=== PATIENT | male | born 1940 | race Caucasian/White ===

== ENCOUNTER → 2018-03-31 14:04 | Outpatient (CLI) | payer OTHER, SELFPAY ==
[2018-03-31 15:55] LABS: Prostate Specific Antigen 0.251 ng/mL (0.10-4.00)
== END ==
PROVIDERS: Family Provider Family Medicine; PCP Family Medicine; Visit Provider Urology
DX: C61 Malignant neoplasm of prostate (principal)
CPT/HCPCS: 36415; 84153

== ENCOUNTER → 2018-10-25 11:36 | Outpatient (CLI) | payer OTHER, SELFPAY ==
[2018-10-25 14:05] LABS: Prostate Specific Antigen 0.303 ng/mL (0.10-4.00)
== END ==
PROVIDERS: Family Provider Family Medicine; PCP Family Medicine; Visit Provider Radiology Radiation Oncology
DX: Z85.46 Personal history of malignant neoplasm of prostate (principal)
CPT/HCPCS: 36415; 84153

== ENCOUNTER → 2019-04-07 10:45 | Outpatient (CLI) | payer OTHER, SELFPAY ==
[2019-04-07 12:40] LABS: Prostate Specific Antigen 0.448 ng/mL (0.10-4.00)
== END ==
PROVIDERS: PCP Family Medicine; Visit Provider Urology
DX: C61 Malignant neoplasm of prostate (principal)
CPT/HCPCS: 36415; 84153

== ENCOUNTER → 2019-08-28 11:57 | Outpatient (CLI) | payer OTHER, SELFPAY ==
[2019-08-28 12:33] LABS: Add Manual Diff / Slide Review NO; Basophils Absolute Auto 0 /uL (0-100); Eosinophils Absolute Auto 200 /uL (0-450); Eosinophils Percent Auto 4.2 % (2-4); Hemoglobin 14.7 g/dL (13.5-17.5); Lymphocytes Absolute Auto 1600 /uL (1100-4500); Lymphocytes Percent Auto 33.4 % (25-40); Mean Corpuscular HGB Conc 34.2 % (30-36); Mean Corpuscular Hemoglobin 31.6 PG (26-34); Mean Corpuscular Volume 92.3 fL (80-100); Monocytes Absolute Auto 400 /uL (0-900); Monocytes Percent Auto 7.9 % (3-14); Neutrophils Absolute Auto 2500 /uL (1500-7000); Neutrophils Percent Auto 53.5 % (50-75); Platelet Count 190 X10^3/uL (150-400); Red Blood Cell Count 4.66 X10^6/uL (4.5-5.9); Red Cell Distribution Width 13.7 % (11.6-14.8); White Blood Cell Count 4.8 X10^3/uL (4.5-11.0)
[2019-08-28 13:36] LABS: Alanine Aminotransferase 23 IU/L (<50); Albumin 4.4 g/dL (3.5-5.0); Albumin Globulin Ratio 1.6 (1.0-2.8); Alkaline Phosphatase 58 U/L (38-126); Aspartate Aminotransferase 24 IU/L (17-59); BUN Creatinine Ratio 21.1 (6-22); Bilirubin Total 0.7 mg/dL (0.2-1.3); Blood Urea Nitrogen 19 mg/dL (9-20); Calcium 9.8 mg/dL (8.4-10.2); Carbon Dioxide 31 mmol/L (22-32); Chloride 102 mmol/L (98-107); Estimated Glomerular Filt Rate > 60.0 mL/min (>60); Globulin 2.8 g/dL (1.7-4.1); Glucose 120 mg/dL (80-110); HEMOLYSIS < 15 (0-50); Potassium 4.4 mmol/L (3.4-5.1); Sodium 141 mmol/L (137-145); Total Protein 7.2 g/dL (6.3-8.2)
[2019-08-28 14:06] LABS: Thyroid Stimulating Hormone 3.88 uIU/mL (0.47-4.68)
== END ==
PROVIDERS: PCP Family Medicine; Referring Provider Family Medicine; Visit Provider Family Medicine
DX: R41.3 Other amnesia (principal)
CPT/HCPCS: 36415; 80053; 84443; 85025

== ENCOUNTER → 2019-10-25 16:04 | Outpatient (CLI) | payer OTHER, SELFPAY ==
[2019-10-25 17:49] LABS: Prostate Specific Antigen 0.661 ng/mL (0.10-4.00)
== END ==
PROVIDERS: PCP Family Medicine; Referring Provider Radiology Radiation Oncology; Visit Provider Radiology Radiation Oncology
DX: C61 Malignant neoplasm of prostate (principal)
CPT/HCPCS: 36415; 84153

== ENCOUNTER 2020-05-04 14:11 | Observation (INO) | payer OTHER, SELFPAY ==
[2020-05-04] VITALS (27 sets, daily range): BP systolic 86–145; BP diastolic 59–111; PULSE 76–100; RESP 12–20; TEMP 36.1–38; O2SAT 92–100; BMI 25.0
--- NOTE | 2020-05-04 14:18 | ED.GENADULT ---
HPI - General Adult General Chief complaint: Fever Stated complaint: fever, dark urine Time Seen by Provider: 05/04/20 14:12 Source: EMS Mode of arrival: EMS Limitations: other (Dementia) History of Present Illness HPI narrative: Patient is an 80-year-old male. History of dementia. EMS were called by the patient's for evaluation of decreased urine, fevers, more sleepy and less responsive over the past several hours/day. was also concerned about dark colored urine in a potential urinary tract infection. EMS reports that in transitioning from different positions the patient did become very lightheaded and potentially had a presyncopal episode. Patient unable to provide any HPI. Related Data Home Medications Medication Instructions Recorded Confirmed donepezil 10 mg PO BID 05/04/20 05/04/20 quetiapine 25 mg PO BID 05/04/20 05/04/20 Allergies Allergy/AdvReac Type Severity Reaction Status Date / Time No Known Drug Allergies Allergy Verified 05/04/20 14:34 Review of Systems Review of Systems ROS Unobtainable: Unobtainable due to medical condition Patient History Medical History Change in mental status (Inactive) Influenza A (Inactive) Lewy body dementia (Inactive) Social History Smoking Status: Former smoker Exam Initial Vital Signs Initial Vital Signs: Vital Signs Temperature 100.4 F H 05/04/20 14:10 Pulse Rate 100 H 05/04/20 14:10 Respiratory Rate 20 05/04/20 14:10 Blood Pressure 111/60 05/04/20 14:10 Pulse Oximetry 100 05/04/20 14:10 Const General: comfortable and well developed Limitations: behavioral limitations HENMT Head: normal to inspection and normocephalic Resp Effort & Inspection: normal respiratory effort Auscultation: clear to auscultation bilaterally Cardio Rate: regular rate Rhythm: regular rhythm GI Inspection: non-distended Palpation: soft and No tender Skin Lesions: no lesions Rashes: no rashes Neuro General: patient alert and patient awake Cognition: abnormal cognition Speech: speech normal Extrem General: normal to inspection and capillary refill normal Psych Appearance: grossly normal and well kempt Scores GCS [place] coma scale eye opening: Spontaneous [place] coma scale verbal response: Confused Hermilo coma scale motor response: Obey commands [place] coma scale total score: 14 Course Orders Ordered: ED Orders 05/04/20 14:15 COVID19 -ED/INPAT/OR/L&D Stat 05/04/20 14:19 EKG-12 Lead Stat 05/04/20 14:20 Consult to [facility] [place] - Fitness Coach Stat Blood Culture Stat Complete Blood Count AUTO DIFF Stat Comprehensive Metabolic Panel Stat Lactate (Lactic Acid) Stat Lipase Stat Partial Thromboplastin Time Stat Procalcitonin Stat Prothrombin Time INR Stat Troponin & CK Cardiac Panel Stat 05/04/20 14:30 Urinalysis and Microscopic Stat 05/04/20 15:53 CT head/brain wo con Stat 05/04/20 15:54 XR chest 1V Stat Sodium Chloride (Normal Saline 0.9%) 1,000 mls @ 125 mls/hr IV CONT PRASANTH Last Admin: 05/04/20 16:11 Dose: 125 mls/hr Documented by: QUIRINO Discontinued Medications Sodium Chloride (Normal Saline 0.9%) 1,000 mls @ 1,000 mls/hr IV BOLUS ONE Stop: 05/04/20 15:17 Last Infusion: 05/04/20 16:07 Dose: 0 mls/hr Documented by: Admin: 05/04/20 14:38 Dose: 1,000 mls/hr Documented by: QUIRINO Vital Signs Vital signs: Vital Signs - 8 hr 05/04/20 14:10 05/04/20 14:31 05/04/20 14:33 Temperature 100.4 F H Pulse Rate 100 H 93 H 91 H Pulse Rate [Orthostatic Lying] Pulse Rate [Orthostatic Sitting] Respiratory Rate 20 18 18 Blood Pressure 111/60 86/59 L Blood Pressure [Orthostatic Lying] Blood Pressure [Orthostatic Sitting] Pulse Oximetry 100 93 97 05/04/20 14:41 05/04/20 14:45 05/04/20 15:00 Temperature Pulse Rate 91 H 91 H 88 Pulse Rate [Orthostatic Lying] Pulse Rate [Orthostatic Sitting] Respiratory Rate 17 18 13 Blood Pressure 95/67 96/68 92/62 Blood Pressure [Orthostatic Lying] Blood Pressure [Orthostatic Sitting] Pulse Oximetry 96 96 94 05/04/20 15:15 05/04/20 15:30 05/04/20 15:45 Temperature Pulse Rate 89 85 86 Pulse Rate [Orthostatic Lying] Pulse Rate [Orthostatic Sitting] Respiratory Rate 15 13 14 Blood Pressure 93/68 100/73 104/70 Blood Pressure [Orthostatic Lying] Blood Pressure [Orthostatic Sitting] Pulse Oximetry 98 99 99 05/04/20 16:00 05/04/20 17:18 05/04/20 17:20 Temperature 98.0 F Pulse Rate 86 Pulse Rate [Orthostatic Lying] 88 Pulse Rate [Orthostatic Sitting] 85 Respiratory Rate 14 Blood Pressure 99/68 Blood Pressure [Orthostatic Lying] 132/82 Blood Pressure [Orthostatic Sitting] 112/72 Pulse Oximetry 98 Medical Decision Making Medical Records Medical records reviewed: Yes I reviewed the patient's medical records. Lab Data Lab results reviewed: Yes I reviewed the patient's lab results. Result diagrams: 05/04/20 14:20 05/04/20 14:20 Labs: Lab Results 05/04/20 05/04/20 05/04/20 Range/Units 14:15 14:20 14:20 WBC 8.2 (4.5-11.0) X10^3/uL RBC 4.94 (4.5-5.9) X10^6/uL Hgb 15.4 (13.5-17.5) g/dL Hct 45.3 (41-53) % MCV 91.8 (80-100) fL MCH 31.1 (26-34) PG MCHC 33.9 (30-36) % RDW 13.7 (11.6-14.8) % Plt Count 200 (150-400) X10^3/uL Neut % (Auto) 45.5 L (50-75) % Lymph % (Auto) 44.5 H (25-40) % Levy % (Auto) 7.8 (3-14) % Eos % (Auto) 1.8 L (2-4) % Baso % (Auto) 0.4 (0-2) % Neut # (Auto) 3700 (5545-8710) /uL Lymph # (Auto) 3600 (4635-0684) /uL Levy # (Auto) 600 (0-900) /uL Eos # (Auto) 100 (0-450) /uL Baso # (Auto) 0 (0-100) /uL PT 12.3 (10.1-12.7) SECONDS INR 1.1 (0.9-1.3) APTT 30 (26.4-36.2) SECONDS Sodium (137-145) mmol/L Potassium (3.4-5.1) mmol/L Chloride (98-107) mmol/L Carbon Dioxide (22-32) mmol/L BUN (9-20) mg/dL Creatinine (0.66-1.25) mg/dL Estimated GFR (>60) mL/min BUN/Creatinine Ratio (6-22) Glucose (80-110) mg/dL Lactate (0.7-2.1) mmol/L Calcium (8.4-10.2) mg/dL Total Bilirubin (0.2-1.3) mg/dL AST (17-59) IU/L ALT (<50) IU/L Alkaline Phosphatase (38-126) U/L Total Creatine Kinase (55-170) U/L CK-MB (CK-2) (<2.37) ng/mL CK-MB (CK-2) Rel Index (1.5-5.0) % Troponin I (0.01-0.034) ng/mL Total Protein (6.3-8.2) g/dL Albumin (3.5-5.0) g/dL Globulin (1.7-4.1) g/dL Albumin/Globulin Ratio (1.0-2.8) Lipase (23-300) U/L Procalcitonin (<0.5) ng/mL Urine Color Urine Appearance Urine pH (4.5-8.0) Ur Specific [place] (1.000-1.035) Urine Protein (Negative) Urine Glucose (UA) (Negative) g/dL Urine Ketones (NEGATIVE) Urine Occult Blood (Negative) Urine Nitrate (Negative) Urine Bilirubin (NEGATIVE) Urine Urobilinogen (0.2) E.U./dL Ur Leukocyte Esterase (NEGATIVE) Urine RBC (0-5/HPF) Urine WBC (0-5/HPF) Ur Squamous Epith Cells (0-5/HPF) Urine Bacteria (None) Urine Mucus (Negative) Ur Culture Indicated? COVID-19 PCR Negative (Negative) 05/04/20 05/04/20 05/04/20 Range/Units 14:20 14:20 14:20 WBC (4.5-11.0) X10^3/uL RBC (4.5-5.9) X10^6/uL Hgb (13.5-17.5) g/dL Hct (41-53) % MCV (80-100) fL MCH (26-34) PG MCHC (30-36) % RDW (11.6-14.8) % Plt Count (150-400) X10^3/uL Neut % (Auto) (50-75) % Lymph % (Auto) (25-40) % Levy % (Auto) (3-14) % Eos % (Auto) (2-4) % Baso % (Auto) (0-2) % Neut # (Auto) (3312-2032) /uL Lymph # (Auto) (3572-5390) /uL Levy # (Auto) (0-900) /uL Eos # (Auto) (0-450) /uL Baso # (Auto) (0-100) /uL PT (10.1-12.7) SECONDS INR (0.9-1.3) APTT (26.4-36.2) SECONDS Sodium 136 L (137-145) mmol/L Potassium 4.3 (3.4-5.1) mmol/L Chloride 107 (98-107) mmol/L Carbon Dioxide 25 (22-32) mmol/L BUN 14 (9-20) mg/dL Creatinine 0.76 (0.66-1.25) mg/dL Estimated GFR > 60.0 (>60) mL/min BUN/Creatinine Ratio 18.4 (6-22) Glucose 148 H (80-110) mg/dL Lactate 1.5 (0.7-2.1) mmol/L Calcium 8.9 (8.4-10.2) mg/dL Total Bilirubin 1.0 (0.2-1.3) mg/dL AST 28 (17-59) IU/L ALT 23 (<50) IU/L Alkaline Phosphatase 55 (38-126) U/L Total Creatine Kinase 128 (55-170) U/L CK-MB (CK-2) 1.02 (<2.37) ng/mL CK-MB (CK-2) Rel Index 0.8 L (1.5-5.0) % Troponin I < 0.012 (0.01-0.034) ng/mL Total Protein 7.1 (6.3-8.2) g/dL Albumin 3.9 (3.5-5.0) g/dL Globulin 3.2 (1.7-4.1) g/dL Albumin/Globulin Ratio 1.2 (1.0-2.8) Lipase 113 (23-300) U/L Procalcitonin < 0.05 (<0.5) ng/mL Urine Color Urine Appearance Urine pH (4.5-8.0) Ur Specific [place] (1.000-1.035) Urine Protein (Negative) Urine Glucose (UA) (Negative) g/dL Urine Ketones (NEGATIVE) Urine Occult Blood (Negative) Urine Nitrate (Negative) Urine Bilirubin (NEGATIVE) Urine Urobilinogen (0.2) E.U./dL Ur Leukocyte Esterase (NEGATIVE) Urine RBC (0-5/HPF) Urine WBC (0-5/HPF) Ur Squamous Epith Cells (0-5/HPF) Urine Bacteria (None) Urine Mucus (Negative) Ur Culture Indicated? COVID-19 PCR (Negative) 05/04/20 Range/Units 14:30 WBC (4.5-11.0) X10^3/uL RBC (4.5-5.9) X10^6/uL Hgb (13.5-17.5) g/dL Hct (41-53) % MCV (80-100) fL MCH (26-34) PG MCHC (30-36) % RDW (11.6-14.8) % Plt Count (150-400) X10^3/uL Neut % (Auto) (50-75) % Lymph % (Auto) (25-40) % Levy % (Auto) (3-14) % Eos % (Auto) (2-4) % Baso % (Auto) (0-2) % Neut # (Auto) (2343-6594) /uL Lymph # (Auto) (1249-3318) /uL Levy # (Auto) (0-900) /uL Eos # (Auto) (0-450) /uL Baso # (Auto) (0-100) /uL PT (10.1-12.7) SECONDS INR (0.9-1.3) APTT (26.4-36.2) SECONDS Sodium (137-145) mmol/L Potassium (3.4-5.1) mmol/L Chloride (98-107) mmol/L Carbon Dioxide (22-32) mmol/L BUN (9-20) mg/dL Creatinine (0.66-1.25) mg/dL Estimated GFR (>60) mL/min BUN/Creatinine Ratio (6-22) Glucose (80-110) mg/dL Lactate (0.7-2.1) mmol/L Calcium (8.4-10.2) mg/dL Total Bilirubin (0.2-1.3) mg/dL AST (17-59) IU/L ALT (<50) IU/L Alkaline Phosphatase (38-126) U/L Total Creatine Kinase (55-170) U/L CK-MB (CK-2) (<2.37) ng/mL CK-MB (CK-2) Rel Index (1.5-5.0) % Troponin I (0.01-0.034) ng/mL Total Protein (6.3-8.2) g/dL Albumin (3.5-5.0) g/dL Globulin (1.7-4.1) g/dL Albumin/Globulin Ratio (1.0-2.8) Lipase (23-300) U/L Procalcitonin (<0.5) ng/mL Urine Color Yellow Urine Appearance Clear Urine pH 6.5 (4.5-8.0) Ur Specific [place] 1.020 (1.000-1.035) Urine Protein Negative (Negative) Urine Glucose (UA) Negative (Negative) g/dL Urine Ketones Negative (NEGATIVE) Urine Occult Blood Negative (Negative) Urine Nitrate Negative (Negative) Urine Bilirubin Negative (NEGATIVE) Urine Urobilinogen 0.2 (0.2) E.U./dL Ur Leukocyte Esterase Negative (NEGATIVE) Urine RBC None seen (0-5/HPF) Urine WBC 1-5/hpf (0-5/HPF) Ur Squamous Epith Cells 0-1 /hpf (0-5/HPF) Urine Bacteria None seen (None) Urine Mucus 1+ H (Negative) Ur Culture Indicated? Cult not indicated COVID-19 PCR (Negative) Imaging Data CT scan - head: Radiologist's Impression: [address] [id number] [address] Scan Report Signed Patient: Martell Gonzales CMR#: [id number] : 1940Acct:[id number] Age/Sex: 80 / MDate of Service: 05/04/20 Loc: ED Accession Number: [id number] Procedure: CT head/brain wo con Ordering Provider: Bayron Ayala D.O. PROCEDURE: CT HEAD/BRAIN WO CON INDICATIONS: AMS TECHNIQUE: Noncontrast 4.5 mm thick angled axial sections acquired from the foramen magnum to the vertex, with coronal and sagittal reformats. For radiation dose reduction, the following was used: automated exposure control, adjustment of mA and/or kV according to patient size. COMPARISON: [facility], CT, HEAD WITHOUT CONTRAST, 04/30/2017, 9:54. [facility], CT, HEAD WITHOUT CONTRAST, 06/24/2016, 15:50. FINDINGS: Image quality: Excellent. CSF spaces: Basal cisterns are patent. No extra-axial fluid collections. The ventricles are symmetric in size and shape. Brain: No intracranial bleeds or masses. There is moderate cerebral volume loss for age, with resultant ventricular and sulcal prominence. There are moderate periventricular and deep white matter chronic small vessel ischemic changes. There is intracranial internal carotid artery atherosclerosis. Skull and face: Calvarium and visualized facial bones appear intact, without suspicious lesions. Sinuses: Visualized sinuses and mastoids are clear. IMPRESSION: 1. CT head without acute intracranial abnormalities or acute calvarial fractures. 2. Age-related senescent changes and sequela of chronic small vessel ischemic disease. Dictated by: Fer Tillman M.D. on 05/04/2020 at 15:40 Approved by: Fer Tillman M.D. on 05/04/2020 at 15:43 Chest x-ray: Radiologist's Impression: [address] [id number] XRay Report Signed Patient: Martell Gonzales CMR#: [id number] : 1940Acct:[id number] Age/Sex: 80 / MDate of Service: 05/04/20 Loc: ED Accession Number: [id number] Procedure: XR chest 1V Ordering Provider: Bayron Ayala D.O. PROCEDURE: XR CHEST 1V INDICATIONS: eval for PNA TECHNIQUE: One view of the chest was acquired. COMPARISON: [facility], CR, CHEST 1 VIEW, 06/24/2016, 15:19. FINDINGS: Surgical changes and devices: None. Lungs and pleura: There is a somewhat curvilinear density projecting across the upper half of the chest bilaterally likely representing artifact or skin fold. Lungs are clear. No pleural effusions or pneumothorax. Mediastinum: Mediastinal contours appear normal. Heart size is normal. Bones and chest wall: No suspicious bony lesions. Overlying soft tissues appear unremarkable. Severe degenerative changes of the bilateral shoulders are again noted, more pronounced on the right. IMPRESSION: Curvilinear density projecting across the upper chest bilaterally with suggestion of extending outside of the chest. This is favored to represent artifact, possibly skin fold. Recommend repeating examination with upright and lateral view if patient is able. Otherwise, no acute cardiopulmonary abnormalities. Dictated by: Fer Tillman M.D. on 05/04/2020 at 15:43 Approved by: Fer Tillman M.D. on 05/04/2020 at 15:48 ECG Data Attestation: I personally reviewed and interpreted this ECG as follows: Prior ECG tracings: not available for review Interpretation: Sinus rhythm Ventricular rate of 97 Left axis deviation Nonspecific ST T wave changes MDM Narrative Medical decision making narrative: Patient's came to the emergency department and upon further evaluation it sounds like that starting 4 days ago patient had acute worsening of his dementia/altered mental status. He has spent past 4 days in bed. Cannot stand secondary to weakness and unsteadiness. Has fallen multiple times. After learning this information a head CT was ordered. He is not on anticoagulation. Was febrile upon arrival however no source of infection was found. Was not given any antibiotics. Patient unable to stand on his own. I discussed the case with Dr. Lockwood who was on-call for the patient's primary provider. Will admit for further evaluation treatment. Discussed the admission with the patient's . He expressed understanding and agreement. Discharge Plan Departure Patient Disposition: Admitted as Observation Clinical Impression: Fever of unknown origin Altered mental status Qualifiers: Altered mental status type: unspecified Qualified Code(s): R41.82 - Altered mental status, unspecified Admit Date/Time: 05/04/20 17:20 Admit Provider: Fernando Lockwood
[2020-05-04 14:32] LABS: Add Manual Diff / Slide Review NO; Basophils Absolute Auto 0 /uL (0-100); Basophils Percent Auto 0.4 % (0-2); Eosinophils Absolute Auto 100 /uL (0-450); Eosinophils Percent Auto 1.8 % (2-4); Hematocrit 45.3 % (41-53); Hemoglobin 15.4 g/dL (13.5-17.5); Lymphocytes Absolute Auto 3600 /uL (1100-4500); Lymphocytes Percent Auto 44.5 % (25-40); Mean Corpuscular HGB Conc 33.9 % (30-36); Mean Corpuscular Hemoglobin 31.1 PG (26-34); Mean Corpuscular Volume 91.8 fL (80-100); Monocytes Absolute Auto 600 /uL (0-900); Monocytes Percent Auto 7.8 % (3-14); Neutrophils Absolute Auto 3700 /uL (1500-7000); Neutrophils Percent Auto 45.5 % (50-75); Platelet Count 200 X10^3/uL (150-400); Red Blood Cell Count 4.94 X10^6/uL (4.5-5.9); Red Cell Distribution Width 13.7 % (11.6-14.8); White Blood Cell Count 8.2 X10^3/uL (4.5-11.0)
[2020-05-04 14:35] LABS: Bacteria Urine None Seen; RBC Urine None Seen (0-5/HPF)
[2020-05-04 14:37] LABS: INR 1.1 (0.9-1.3); Prothrombin Time 12.3 SECONDS (10.1-12.7)
[2020-05-04] MEDS: SODIUM CHLORIDE 0.9% 1,000 ML 1000 ML IV (14:38)
[2020-05-04 14:39] LABS: PTT Partial Thromboplastin Tim 30 SECONDS (26.4-36.2)
[2020-05-04 14:41] LABS: Alanine Aminotransferase 23 IU/L (<50); Albumin 3.9 g/dL (3.5-5.0); Albumin Globulin Ratio 1.2 (1.0-2.8); Alkaline Phosphatase 55 U/L (38-126); Aspartate Aminotransferase 28 IU/L (17-59); BUN Creatinine Ratio 18.4 (6-22); Blood Urea Nitrogen 14 mg/dL (9-20); Calcium 8.9 mg/dL (8.4-10.2); Carbon Dioxide 25 mmol/L (22-32); Chloride 107 mmol/L (98-107); Creatine Kinase 128 U/L (55-170); Estimated Glomerular Filt Rate > 60.0 mL/min (>60); Globulin 3.2 g/dL (1.7-4.1); Glucose 148 mg/dL (80-110); HEMOLYSIS 65 (0-50); Lactate (Lactic Acid) 1.5 mmol/L (0.7-2.1); Lipase 113 U/L (23-300); Potassium 4.3 mmol/L (3.4-5.1); Sodium 136 mmol/L (137-145); Total Protein 7.1 g/dL (6.3-8.2)
[2020-05-04 14:45] LABS: Appearance Urine UA CLEAR; Bilirubin Urine UA NEGATIVE (NEGATIVE); Color Urine UA YELLOW; Glucose Urine UA NEGATIVE (Negative); Ketones Urine UA NEGATIVE (NEGATIVE); Leukocyte Esterase Urine UA NEGATIVE (NEGATIVE); Nitrite Urine UA NEGATIVE (Negative); Occult Blood Urine UA NEGATIVE (Negative); Protein Urine UA NEGATIVE (Negative); Urobilinogen Urine UA 0.2 E.U./dL (0.2); pH Urine UA 6.5 (4.5-8.0)
[2020-05-04 14:52] LABS: Troponin I < 0.012 ng/mL (0.01-0.034)
[2020-05-04 14:54] LABS: Culture Indicated Urine Cult Not Indicated; Mucus Urine 1+ (Negative); Squamous Epithelial Cell Urine 0-1 /HPF (0-5/HPF); WBC Urine 1-5/HPF (0-5/HPF)
[2020-05-04 14:56] LABS: CKMB % Relative Index 0.8 % (1.5-5.0); Creatine Kinase MB 1.02 ng/mL (<2.37); Procalcitonin < 0.05 ng/mL (<0.5)
[2020-05-04 15:00] LABS: COVID19 -Nasal RAPID Negative (Negative)
--- NOTE | 2020-05-04 15:53 | DI.CT.S_ITS ---
PROCEDURE: CT HEAD/BRAIN WO CON INDICATIONS: AMS TECHNIQUE: Noncontrast 4.5 mm thick angled axial sections acquired from the foramen magnum to the vertex, with coronal and sagittal reformats. For radiation dose reduction, the following was used: automated exposure control, adjustment of mA and/or kV according to patient size. COMPARISON: [facility], CT, HEAD WITHOUT CONTRAST, 04/30/2017, 9:54. [facility], CT, HEAD WITHOUT CONTRAST, 06/24/2016, 15:50. FINDINGS: Image quality: Excellent. CSF spaces: Basal cisterns are patent. No extra-axial fluid collections. The ventricles are symmetric in size and shape. Brain: No intracranial bleeds or masses. There is moderate cerebral volume loss for age, with resultant ventricular and sulcal prominence. There are moderate periventricular and deep white matter chronic small vessel ischemic changes. There is intracranial internal carotid artery atherosclerosis. Skull and face: Calvarium and visualized facial bones appear intact, without suspicious lesions. Sinuses: Visualized sinuses and mastoids are clear. IMPRESSION: 1. CT head without acute intracranial abnormalities or acute calvarial fractures. 2. Age-related senescent changes and sequela of chronic small vessel ischemic disease. Dictated by: Fer Tillman M.D. on 05/04/2020 at 15:40 Approved by: Fer Tillman M.D. on 05/04/2020 at 15:43
--- NOTE | 2020-05-04 15:54 | DI.RAD.S_ITS ---
PROCEDURE: XR CHEST 1V INDICATIONS: eval for PNA TECHNIQUE: One view of the chest was acquired. COMPARISON: [facility], , CHEST 1 VIEW, 06/24/2016, 15:19. FINDINGS: Surgical changes and devices: None. Lungs and pleura: There is a somewhat curvilinear density projecting across the upper half of the chest bilaterally likely representing artifact or skin fold. Lungs are clear. No pleural effusions or pneumothorax. Mediastinum: Mediastinal contours appear normal. Heart size is normal. Bones and chest wall: No suspicious bony lesions. Overlying soft tissues appear unremarkable. Severe degenerative changes of the bilateral shoulders are again noted, more pronounced on the right. IMPRESSION: Curvilinear density projecting across the upper chest bilaterally with suggestion of extending outside of the chest. This is favored to represent artifact, possibly skin fold. Recommend repeating examination with upright and lateral view if patient is able. Otherwise, no acute cardiopulmonary abnormalities. Dictated by: Fer Tillman M.D. on 05/04/2020 at 15:43 Approved by: Fer Tillman M.D. on 05/04/2020 at 15:48
--- NOTE | 2020-05-04 15:57 | CM.SWNOTE ---
JACK PRIZER note JACK PRIZER consult requested for patient. Patient is a 80 y/o male who presents to ED via EMS with Sharron with concerns of decreased energy and dark urine. JACK PRIZER asked to consult to inquire about any potential care giving needs. JACK PRIZER enters room. Patient is asleep, and JACK PRIZER talks with Sharron. Sharron explains that patient has Lewy Body Dementia, that they have a cna caregiver that they have been working with for multiple years, and that Sharron has taken many steps to keep patient safe in home. Sharron says that she is on the wait list for [facility], but is wanting to keep patient in home as long as it remains feasible. Sharron explains that patient does not want to take medication, but she has been ensuring that he is taking his medication for the past two years. Sharron explains she has installed handles on rivera/showers, put railings on the stairs, and created a gate at the top of the stairs to prevent patient from walking down the stairs in the middle of the night. Sharron is also exploring options to put railings on the sides of patient's bed. Patient is engaged with PT and PCP. Sharron states that though she likes her cna caregiver and has family support, she is feeling as though she has not been able to have time to herself due to care giving needs. Sharron states she is open to exploring backup private caregivers and JACK PRIZER provides senior resource guide and explains process for working with some of the local agencies. JACK PRIZER updates Dr. Ayala, and patient discusses no other needs at this time. RADHA Andre
[2020-05-04] MEDS: SODIUM CHLORIDE 0.9% 1,000 ML 125 ML IV ×2 (16:11→20:56)
--- NOTE | 2020-05-04 17:19 | PC.NURSE ---
patient unable to follow directions. Laying and sitting orthostatics only taken. Patient provided a walker however unable to comprehend the task and would not hold onto the walker. Provider at bedside and aware.
--- NOTE | 2020-05-04 18:11 | PC.NURSE ---
Pt being fed apple sauce by while laying down. Educated regarding risk of aspiration increase when taking po laying down. Pt sat up to 75degrees as tolerated.
[2020-05-04 18:48] LABS: Strep Grp A by PCR Rapid Negative
--- NOTE | 2020-05-04 19:09 | PM.HP.1 ---
History of Present Illness History of Present Illness Date Patient Seen: 05/04/20 Time Patient Seen: 19:09 Chief complaint: fever, dark urine Narrative: 80-year-old male admitted by the [facility] Emergency Department with increased weakness and altered mental status. Patient's symptoms apparently began something like 3 or 4 days prior to admission. Spouse notes he spent much more time in his room and had increased weakness and multiple falls which is unusual for him. Spouse had noticed that his urine was dark and he was sort of somnolent and wondered about possible urinary tract infection. EMS was summoned and patient was brought to the hospital. During transport and prep for transport patient apparently reported some lightheadedness and dizziness and maybe even had a presyncopal episode. He had some intermittent hypotension during monitoring in the ER as well. Patient has longstanding history of Lewy body dementia followed by Neurology at [facility] in [place]. However his normal function level is apparently fairly independent ambulatory and able to converse. He certainly is nothing like that currently. After admission while in the hospital floor patient began to return to his normal status in fact having increasing agitation and trying to get up out of bed. 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) Prostate cancer (Inactive) Surgical History History of radical prostatectomy (Acute 11/27/13) History of total right hip arthroplasty (Acute 07/16/14) Family & Social History Social History: household members spouse Prior Living Arrangements House Safety & Behavioral: Feels Safe in Current Yes Environment Been Physically Hurt or No Threatened By a Person Suicidal Ideation Description None Suicide Plan Description No Plan Tobacco & Substance use: Smoking Status Never smoker alcohol intake never alcohol intake frequency 0-2 drinks per day Substance Use Type does not use Meds Home Medications and Allergies Home Medications Medication Instructions Recorded Confirmed Type brimonidine 1 drp OPHTHALMIC (EYE) BID 05/04/20 05/04/20 History donepezil 10 mg PO BID 05/04/20 05/04/20 History latanoprost 1 drp OPHTHALMIC (EYE) BEDTIME 05/04/20 05/04/20 History quetiapine 25 mg PO BID 05/04/20 05/04/20 History Allergies Allergy/AdvReac Type Severity Reaction Status Date / Time No Known Drug Allergies Allergy Verified 05/04/20 14:34 Review of Systems Review of Systems ROS: Yes unobtainable due to mental status Exam Vital Signs (past 8 hours): - 05/04/20 14:10 05/04/20 14:31 05/04/20 14:33 Temperature 100.4 F H Pulse Rate 100 H 93 H 91 H Pulse Rate [Orthostatic Lying] Pulse Rate [Orthostatic Sitting] Respiratory Rate 20 18 18 Blood Pressure 111/60 86/59 L Blood Pressure [Orthostatic Lying] Blood Pressure [Orthostatic Sitting] Pulse Oximetry 100 93 97 05/04/20 14:41 05/04/20 14:45 05/04/20 15:00 Temperature Pulse Rate 91 H 91 H 88 Pulse Rate [Orthostatic Lying] Pulse Rate [Orthostatic Sitting] Respiratory Rate 17 18 13 Blood Pressure 95/67 96/68 92/62 Blood Pressure [Orthostatic Lying] Blood Pressure [Orthostatic Sitting] Pulse Oximetry 96 96 94 05/04/20 15:15 05/04/20 15:30 05/04/20 15:45 Temperature Pulse Rate 89 85 86 Pulse Rate [Orthostatic Lying] Pulse Rate [Orthostatic Sitting] Respiratory Rate 15 13 14 Blood Pressure 93/68 100/73 104/70 Blood Pressure [Orthostatic Lying] Blood Pressure [Orthostatic Sitting] Pulse Oximetry 98 99 99 05/04/20 16:00 05/04/20 16:15 05/04/20 16:38 Temperature Pulse Rate 86 82 89 Pulse Rate [Orthostatic Lying] Pulse Rate [Orthostatic Sitting] Respiratory Rate 14 12 Blood Pressure 99/68 101/71 Blood Pressure [Orthostatic Lying] Blood Pressure [Orthostatic Sitting] Pulse Oximetry 98 99 92 05/04/20 16:39 05/04/20 16:45 05/04/20 17:00 Temperature Pulse Rate 85 86 85 Pulse Rate [Orthostatic Lying] Pulse Rate [Orthostatic Sitting] Respiratory Rate Blood Pressure 133/86 Blood Pressure [Orthostatic Lying] Blood Pressure [Orthostatic Sitting] Pulse Oximetry 98 99 99 05/04/20 17:10 05/04/20 17:14 05/04/20 17:17 Temperature Pulse Rate 85 76 Pulse Rate [Orthostatic Lying] Pulse Rate [Orthostatic Sitting] Respiratory Rate Blood Pressure 112/72 Blood Pressure [Orthostatic Lying] Blood Pressure [Orthostatic Sitting] Pulse Oximetry 100 96 05/04/20 17:18 05/04/20 17:20 05/04/20 17:30 Temperature 98.0 F Pulse Rate 81 Pulse Rate [Orthostatic Lying] 88 Pulse Rate [Orthostatic Sitting] 85 Respiratory Rate Blood Pressure Blood Pressure [Orthostatic Lying] 132/82 Blood Pressure [Orthostatic Sitting] 112/72 Pulse Oximetry 100 05/04/20 17:31 05/04/20 17:45 05/04/20 17:46 Temperature Pulse Rate 83 85 82 Pulse Rate [Orthostatic Lying] Pulse Rate [Orthostatic Sitting] Respiratory Rate Blood Pressure 129/81 120/69 Blood Pressure [Orthostatic Lying] Blood Pressure [Orthostatic Sitting] Pulse Oximetry 100 99 100 05/04/20 18:00 05/04/20 18:15 Temperature Pulse Rate 77 87 Pulse Rate [Orthostatic Lying] Pulse Rate [Orthostatic Sitting] Respiratory Rate Blood Pressure 125/82 128/91 H Blood Pressure [Orthostatic Lying] Blood Pressure [Orthostatic Sitting] Pulse Oximetry 100 95 Oxygen Delivery Method Room Air Narrative Exam Narrative: Elderly male who was continuously trying to get up out of bed. Seems to understand some of the discussion but certainly not most of it HEENT-remarkable Lungs-good breath sounds like an get him to cooperate, no wheezes or crackles Heart-regular rate and rhythm Abdomen-positive bowel tones soft nontender Extremities-no cyanosis clubbing or edema Neuro-patient able to speak an attempt to get up out of bed otherwise no exam able to be performed Objective Labs Result Diagrams: 05/04/20 14:20 05/04/20 14:20 Labs: Laboratory Results - last 24 hr 05/04/20 05/04/20 05/04/20 14:15 14:20 14:20 WBC 8.2 RBC 4.94 Hgb 15.4 Hct 45.3 MCV 91.8 MCH 31.1 MCHC 33.9 RDW 13.7 Plt Count 200 Neut % (Auto) 45.5 L Lymph % (Auto) 44.5 H [place] % (Auto) 7.8 Eos % (Auto) 1.8 L Baso % (Auto) 0.4 Neut # (Auto) 3700 Lymph # (Auto) 3600 Price # (Auto) 600 Eos # (Auto) 100 Baso # (Auto) 0 PT 12.3 INR 1.1 APTT 30 Sodium Potassium Chloride Carbon Dioxide BUN Creatinine Estimated GFR BUN/Creatinine Ratio Glucose Lactate Calcium Total Bilirubin AST ALT Alkaline Phosphatase Total Creatine Kinase CK-MB (CK-2) CK-MB (CK-2) Rel Index Troponin I Total Protein Albumin Globulin Albumin/Globulin Ratio Lipase Procalcitonin Urine Color Urine Appearance Urine pH Ur Specific [place] Urine Protein Urine Glucose (UA) Urine Ketones Urine Occult Blood Urine Nitrate Urine Bilirubin Urine Urobilinogen Ur Leukocyte Esterase Urine RBC Urine WBC Ur Squamous Epith Cells Urine Bacteria Urine Mucus Ur Culture Indicated? COVID-19 PCR Negative Group A Strep (PCR) 05/04/20 05/04/20 05/04/20 14:20 14:20 14:20 WBC RBC Hgb Hct MCV MCH MCHC RDW Plt Count Neut % (Auto) Lymph % (Auto) Price % (Auto) Eos % (Auto) Baso % (Auto) Neut # (Auto) Lymph # (Auto) Price # (Auto) Eos # (Auto) Baso # (Auto) PT INR APTT Sodium 136 L Potassium 4.3 Chloride 107 Carbon Dioxide 25 BUN 14 Creatinine 0.76 Estimated GFR > 60.0 BUN/Creatinine Ratio 18.4 Glucose 148 H Lactate 1.5 Calcium 8.9 Total Bilirubin 1.0 AST 28 ALT 23 Alkaline Phosphatase 55 Total Creatine Kinase 128 CK-MB (CK-2) 1.02 CK-MB (CK-2) Rel Index 0.8 L Troponin I < 0.012 Total Protein 7.1 Albumin 3.9 Globulin 3.2 Albumin/Globulin Ratio 1.2 Lipase 113 Procalcitonin < 0.05 Urine Color Urine Appearance Urine pH Ur Specific [place] Urine Protein Urine Glucose (UA) Urine Ketones Urine Occult Blood Urine Nitrate Urine Bilirubin Urine Urobilinogen Ur Leukocyte Esterase Urine RBC Urine WBC Ur Squamous Epith Cells Urine Bacteria Urine Mucus Ur Culture Indicated? COVID-19 PCR Group A Strep (PCR) 05/04/20 05/04/20 14:30 18:30 WBC RBC Hgb Hct MCV MCH MCHC RDW Plt Count Neut % (Auto) Lymph % (Auto) Price % (Auto) Eos % (Auto) Baso % (Auto) Neut # (Auto) Lymph # (Auto) Price # (Auto) Eos # (Auto) Baso # (Auto) PT INR APTT Sodium Potassium Chloride Carbon Dioxide BUN Creatinine Estimated GFR BUN/Creatinine Ratio Glucose Lactate Calcium Total Bilirubin AST ALT Alkaline Phosphatase Total Creatine Kinase CK-MB (CK-2) CK-MB (CK-2) Rel Index Troponin I Total Protein Albumin Globulin Albumin/Globulin Ratio Lipase Procalcitonin Urine Color Yellow Urine Appearance Clear Urine pH 6.5 Ur Specific [place] 1.020 Urine Protein Negative Urine Glucose (UA) Negative Urine Ketones Negative Urine Occult Blood Negative Urine Nitrate Negative Urine Bilirubin Negative Urine Urobilinogen 0.2 Ur Leukocyte Esterase Negative Urine RBC None seen Urine WBC 1-5/hpf Ur Squamous Epith Cells 0-1 /hpf Urine Bacteria None seen Urine Mucus 1+ H Ur Culture Indicated? Cult not indicated COVID-19 PCR Group A Strep (PCR) Negative Assessment & Plan Assessment & Plan narrative: 1. Patient with an altered mental status and a significant history of a Lewy body type dementia. Obvious etiology would be a possible infection especially with his low-grade fever that was documented in the ER. However we have been unable to locate a source of infection. He has had a complete workup. There is nothing on his skin to suggest a cellulitis, no findings on chest x-ray and no other respiratory symptoms, no findings on urinalysis, normal white blood cell count. No GI symptoms or findings anyway. At this point will continue to monitor for evidence of possible infection blood cultures have been obtained and I will plan to repeat CBC for tomorrow An alternate diagnosis would be some sort of a SQL SSRS SSIS DEVELOPER event such as a stroke presumably ischemic stroke. This I think is a more likely diagnosis. Normally I would obtain MRI but patient apparently has a history of metal within his I and is not felt to be safe to have an MRI during previous neurological evaluations for his dementing illness. Therefore perhaps repeating CT scan in 48-72 hours might make the most sense. I will have him seen by skilled therapies and will decide on next steps based on his clinical course. I would also suggest an aspirin a day which will be initiated 2. Lewy body dementia-continue patient's Aricept if he can take it orally. That is a question at this point. Continue his other medications as well which have been started by Neurology and he has apparently had some benefit from the quetiapine as well. Patient is exhibiting a fair amount of agitation and if this persists and or ramps up which would suggest he has returned to baseline it might actually be better to discharge him home and continue and evaluation as an outpatient. Lorazepam can be employed in patients with Lewy body dementia although I am certainly not looking to increase his sedation etcetera. More that additional antipsychotics are fairly contraindicated as a can exacerbated parkinsonian type symptoms and have other significant issues. I am going to discontinue his Gillespie catheter which was placed in the ER because he was minimally responsive etcetera. I think that is a source of agitation and irritation for him now. I think we can manage his urinary output with an adult diaper/brief. 3. VTE prophylaxis-Lovenox will be employed, and has been ordered 4. Code status-after discussion with spouse would like to make him a do not resuscitate no code Quality VTE Deep Vein Thrombosis/Pulmonary Embolism Present on Admission: No
--- NOTE | 2020-05-04 19:50 | PC.NURSE ---
Admit notes: Martell restless, trying to swing legs out of bed. Dr Lockwood just in to see patient, then gave me order to DC zavaleta catheter which I did. Patient swung arm at my head during zavaleta DC. Had 200 ml clear yellow urine output. After zavaleta DC pt still saying when can I go to the bathroom? I assisted him with urinal, able to void scant amt of clear yellow urine. After repositioning & giving him warm blankets he closed his eyes and was no longer restless. Tele placed as ordered. Allowed IMPREGNATION OPERATOR to obtain BP and VS. here with Martell, she appears anxious about this situation. Interactive with patient care, asking good questions. 2-4 person assist for transfer to bed and repositioning. I notified risk engineer Christine about patient's mentation & potential to hit/kick at staff. She is aware of this situation.
--- NOTE | 2020-05-04 22:24 | PC.NURSE ---
Admit note: BP hypertensive, but patient would not relax arm when BP cuff pumping up, unsure if BP's are accurate. Other VS stable. When awake he becomes agitated when staff needs to take BP, flush & wrap IV sites, assist him with repositioning or any touch at all. He flinches when I touch his arm. Martell is mostly sleeping after warm blankets given earlier this evening. Awoke to voice, staring at ceiling, when saw me he startled. Attempt to reorient him to place & situation was unsuccessful, patient replied with slurred speech, neither staff nor able to understand what he was saying. told me I think he has been hallucinating recently. Refused PO snack. After given more warm blankets he closed his eyes and appears like he is sleeping. Alarm active for safety, fall precautions in place. spending night on window bench.
[2020-05-05 04:00] VITALS: O2SAT 97
[2020-05-05] MEDS: SODIUM CHLORIDE 0.9% 1,000 ML 125 ML IV (04:37)
[2020-05-05 04:40] VITALS: BP 115/65; PULSE 89; RESP 18; TEMP 36.4; O2SAT 97
[2020-05-05 07:00] VITALS: O2SAT 97
[2020-05-05 08:29] LABS: Add Manual Diff / Slide Review NO; Basophils Absolute Auto 0 /uL (0-100); Basophils Percent Auto 0.6 % (0-2); Eosinophils Absolute Auto 100 /uL (0-450); Eosinophils Percent Auto 1.4 % (2-4); Hematocrit 44.2 % (41-53); Hemoglobin 14.8 g/dL (13.5-17.5); Lymphocytes Absolute Auto 1700 /uL (1100-4500); Lymphocytes Percent Auto 24.9 % (25-40); Mean Corpuscular HGB Conc 33.4 % (30-36); Mean Corpuscular Volume 92.9 fL (80-100); Monocytes Absolute Auto 500 /uL (0-900); Neutrophils Absolute Auto 4400 /uL (1500-7000); Neutrophils Percent Auto 65.1 % (50-75); Platelet Count 180 X10^3/uL (150-400); Red Blood Cell Count 4.76 X10^6/uL (4.5-5.9); Red Cell Distribution Width 13.8 % (11.6-14.8); White Blood Cell Count 6.8 X10^3/uL (4.5-11.0)
[2020-05-05 08:32] LABS: BUN Creatinine Ratio 15.6 (6-22); Blood Urea Nitrogen 12 mg/dL (9-20); Carbon Dioxide 31 mmol/L (22-32); Chloride 106 mmol/L (98-107); Estimated Glomerular Filt Rate > 60.0 mL/min (>60); Glucose 95 mg/dL (80-110); HEMOLYSIS 21 (0-50); Potassium 3.9 mmol/L (3.4-5.1); Sodium 140 mmol/L (137-145)
--- NOTE | 2020-05-05 10:08 | PM.DS.1 ---
History of Present Illness History of Present Illness Chief complaint: fever, dark urine Narrative: 80-year-old male admitted by the [facility] Emergency Department with increased weakness and altered mental status. Patient's symptoms apparently began something like 3 or 4 days prior to admission. Spouse notes he spent much more time in his room and had increased weakness and multiple falls which is unusual for him. Spouse had noticed that his urine was dark and he was sort of somnolent and wondered about possible urinary tract infection. EMS was summoned and patient was brought to the hospital. During transport and prep for transport patient apparently reported some lightheadedness and dizziness and maybe even had a presyncopal episode. He had some intermittent hypotension during monitoring in the ER as well. Patient has longstanding history of Lewy body dementia followed by Neurology at [facility] in [place]. However his normal function level is apparently fairly independent ambulatory and able to converse. He certainly is nothing like that currently. After admission while in the hospital floor patient began to return to his normal status in fact having increasing agitation and trying to get up out of bed. He is able to converse which is probably at his baseline per his spouse is with him in his hospital room Discharge Providers Provider Date of admission: 05/04/20 17:20 Discharge Date: 05/05/20 Primary care physician: Khalif Haley MD Consults: 05/04/20 14:20 Consult to REFINING EQUIPMENT OPERATOR - Highway Construction Inspector Stat Comment: REFINING EQUIPMENT OPERATOR Consult: [facility] Res Need 05/04/20 18:49 Consult to Discharge Planning Routine Comment: Consult to Occupational Therapy Evaluate & Treat Comment: Physician Instructions: Evaluate and treat Consult to Physical Therapy Evaluate & Treat Comment: Physician Instructions: Evaluate and Treat Consult to Speech Therapy Evaluate & Treat Comment: Physician Instructions: Evaluate and treat Discharge provider: Fernando Lockwood MD Summary Hospital Course Discharge Diagnosis: 1. Altered mental status 2. Weakness 3. Lewy body dementia 4. Glaucoma 5. Osteoarthritis of shoulder 6. History of prostate cancer Hospital Course: Patient presented to [facility] Emergency Department via EMS because of an altered mental status with increased weakness. Patient with longstanding (2+ years) diagnosis of Lewy body dementia. Spouse is uncertain as to whether there is something new or different ongoing. He did have low-grade fever in the ER at 100.4 but entire workup for infectious etiologies was unremarkable. Head CT was unremarkable. Not candidate for MRI because of metal in the eye. He seemed to be much more awake alert and perhaps even approaching baseline during his hospitalization when he was not sleeping. Spouse reports this degree of somnolence is a mold insert changer baseline but when awake he appears to be at baseline Given lack of findings on workup including cultures CBC times to etcetera lack of recurrent fever and clear diagnosis it was elected to discharge patient home. Patients with serious cognitive issues tend to do far better in the home environment rather than in hospital setting and there is no good reason to keep this patient in the hospital. He would benefit from home PT OT and will get that set up as an outpatient of course. He will continue on his usual medications including the Aricept and the quetiapine. It may be that the medications are losing their effectiveness and or this is a progression of his underlying disease. Exam Vital Signs (past 8 hours): - 05/05/20 04:00 05/05/20 04:40 05/05/20 07:00 Temperature 97.6 F Pulse Rate 89 Respiratory Rate 18 Blood Pressure 115/65 Pulse Oximetry 97 97 97 Oxygen Delivery Method Room Air Oxygen Flow Rate 0 Objective Labs Result Diagrams: 05/05/20 08:17 05/05/20 08:17 Labs: Laboratory Results - last 24 hr 05/04/20 05/04/20 05/04/20 14:15 14:20 14:20 WBC 8.2 RBC 4.94 Hgb 15.4 Hct 45.3 MCV 91.8 MCH 31.1 MCHC 33.9 RDW 13.7 Plt Count 200 Neut % (Auto) 45.5 L Lymph % (Auto) 44.5 H [place] % (Auto) 7.8 Eos % (Auto) 1.8 L Baso % (Auto) 0.4 Neut # (Auto) 3700 Lymph # (Auto) 3600 [place] # (Auto) 600 Eos # (Auto) 100 Baso # (Auto) 0 PT 12.3 INR 1.1 APTT 30 Sodium Potassium Chloride Carbon Dioxide BUN Creatinine Estimated GFR BUN/Creatinine Ratio Glucose Lactate Calcium Total Bilirubin AST ALT Alkaline Phosphatase Total Creatine Kinase CK-MB (CK-2) CK-MB (CK-2) Rel Index Troponin I Total Protein Albumin Globulin Albumin/Globulin Ratio Lipase Procalcitonin Urine Color Urine Appearance Urine pH Ur Specific [place] Urine Protein Urine Glucose (UA) Urine Ketones Urine Occult Blood Urine Nitrate Urine Bilirubin Urine Urobilinogen Ur Leukocyte Esterase Urine RBC Urine WBC Ur Squamous Epith Cells Urine Bacteria Urine Mucus Ur Culture Indicated? COVID-19 PCR Negative Group A Strep (PCR) 05/04/20 05/04/20 05/04/20 14:20 14:20 14:20 WBC RBC Hgb Hct MCV MCH MCHC RDW Plt Count Neut % (Auto) Lymph % (Auto) [place] % (Auto) Eos % (Auto) Baso % (Auto) Neut # (Auto) Lymph # (Auto) [place] # (Auto) Eos # (Auto) Baso # (Auto) PT INR APTT Sodium 136 L Potassium 4.3 Chloride 107 Carbon Dioxide 25 BUN 14 Creatinine 0.76 Estimated GFR > 60.0 BUN/Creatinine Ratio 18.4 Glucose 148 H Lactate 1.5 Calcium 8.9 Total Bilirubin 1.0 AST 28 ALT 23 Alkaline Phosphatase 55 Total Creatine Kinase 128 CK-MB (CK-2) 1.02 CK-MB (CK-2) Rel Index 0.8 L Troponin I < 0.012 Total Protein 7.1 Albumin 3.9 Globulin 3.2 Albumin/Globulin Ratio 1.2 Lipase 113 Procalcitonin < 0.05 Urine Color Urine Appearance Urine pH Ur Specific [place] Urine Protein Urine Glucose (UA) Urine Ketones Urine Occult Blood Urine Nitrate Urine Bilirubin Urine Urobilinogen Ur Leukocyte Esterase Urine RBC Urine WBC Ur Squamous Epith Cells Urine Bacteria Urine Mucus Ur Culture Indicated? COVID-19 PCR Group A Strep (PCR) 05/04/20 05/04/20 05/05/20 14:30 18:30 08:17 WBC 6.8 RBC 4.76 Hgb 14.8 Hct 44.2 MCV 92.9 MCH 31.0 MCHC 33.4 RDW 13.8 Plt Count 180 Neut % (Auto) 65.1 Lymph % (Auto) 24.9 L [place] % (Auto) 8.0 Eos % (Auto) 1.4 L Baso % (Auto) 0.6 Neut # (Auto) 4400 Lymph # (Auto) 1700 [place] # (Auto) 500 Eos # (Auto) 100 Baso # (Auto) 0 PT INR APTT Sodium Potassium Chloride Carbon Dioxide BUN Creatinine Estimated GFR BUN/Creatinine Ratio Glucose Lactate Calcium Total Bilirubin AST ALT Alkaline Phosphatase Total Creatine Kinase CK-MB (CK-2) CK-MB (CK-2) Rel Index Troponin I Total Protein Albumin Globulin Albumin/Globulin Ratio Lipase Procalcitonin Urine Color Yellow Urine Appearance Clear Urine pH 6.5 Ur Specific [place] 1.020 Urine Protein Negative Urine Glucose (UA) Negative Urine Ketones Negative Urine Occult Blood Negative Urine Nitrate Negative Urine Bilirubin Negative Urine Urobilinogen 0.2 Ur Leukocyte Esterase Negative Urine RBC None seen Urine WBC 1-5/hpf Ur Squamous Epith Cells 0-1 /hpf Urine Bacteria None seen Urine Mucus 1+ H Ur Culture Indicated? Cult not indicated COVID-19 PCR Group A Strep (PCR) Negative 05/05/20 08:17 WBC RBC Hgb Hct MCV MCH MCHC RDW Plt Count Neut % (Auto) Lymph % (Auto) [place] % (Auto) Eos % (Auto) Baso % (Auto) Neut # (Auto) Lymph # (Auto) [place] # (Auto) Eos # (Auto) Baso # (Auto) PT INR APTT Sodium 140 Potassium 3.9 Chloride 106 Carbon Dioxide 31 BUN 12 Creatinine 0.77 Estimated GFR > 60.0 BUN/Creatinine Ratio 15.6 Glucose 95 Lactate Calcium 9.0 Total Bilirubin AST ALT Alkaline Phosphatase Total Creatine Kinase CK-MB (CK-2) CK-MB (CK-2) Rel Index Troponin I Total Protein Albumin Globulin Albumin/Globulin Ratio Lipase Procalcitonin Urine Color Urine Appearance Urine pH Ur Specific [place] Urine Protein Urine Glucose (UA) Urine Ketones Urine Occult Blood Urine Nitrate Urine Bilirubin Urine Urobilinogen Ur Leukocyte Esterase Urine RBC Urine WBC Ur Squamous Epith Cells Urine Bacteria Urine Mucus Ur Culture Indicated? COVID-19 PCR Group A Strep (PCR) Discharge Plan Discharge Plan Patient Disposition: Home Discharge orders & Medications Prescriptions: New aspirin 81 mg tablet,chewable 81 mg PO DAILY Qty: 30 RF: 11 donepezil 5 mg Tablet 15 mg PO DAILY Qty: 90 RF: 3 quetiapine 25 mg Tablet 25 mg PO BEDTIME Qty: 30 RF: 3 Continued latanoprost 0.005 % Drops 1 drp OPHTHALMIC (EYE) BEDTIME RF: 0 brimonidine 0.2 % Drops 1 drp OPHTHALMIC (EYE) BID RF: 0 Discontinued quetiapine 25 mg tablet 25 mg PO BID RF: 0 donepezil 10 mg tablet,disintegrating 10 mg PO BID RF: 0 Follow up/Referrals: Khalif Haley MD [Primary Care Provider] - 2 Weeks Discharge Health Status Multidrug resistant organism: No MDRO Diet/Activity/Treatments Diet: Diet as Tolerated Discharge Data Primary Care Provider: Khalif Haley Attending Provider: Fernando Lockwood Admit Date/Time: 05/04/20 17:20 Quality VTE Deep Vein Thrombosis/Pulmonary Embolism Present on Admission: No
--- NOTE | 2020-05-05 11:15 | CM.DANOTE ---
Addendum entered by RADHA Donahue 05/05/20 15:19: ADD: Per PT, some concerns as pt quite far from baseline and requires 1-2PA and would typically recommend SNF but due to pt's dementia a facility would not likely benefit pt so recommending home with 24/7 and ideally 2 person available for assist and HH. SW met bedside with pt and spouse again and provided [facility] brochure and they are still agreeable and spouse confirms that she feels she can manage pt at home and has 4 people in the home right now that can help (caregiver, 2 older grandkids, and their Dtr) and Dtr plans to stay the night for assist. Furniture has been moved and ready for hospital bed to be delivered sometime this evening. Spouse preference is to d/c home with family assist soon. SW updated RN and staff is working on d/c pwk and will have pt ready for d/c soon. SW called [facility] and alerted to pt d/c home tonight and faxed d/c summary. BF Original Note: Patient is an 80 year old male who admitted on 05/04/20 for Fever/AMS. Pt has [facility] for insurance and his PCP is Dr. Khalif Haley. EMR was reviewed. Per MD, pt with increased weakness and falls over the past almost week and has Lewy Body Dementia and is established with Neurologist at . Per MD, etiology of pt's symptoms unknown at this time and no medical reason to keep pt and he likely is medically stable to d/c home later today after PT eval. SW met bedside with pt, who was sitting upright in chair but drowsy and did not participate in discussion, and spouse Sharron and explained role. Sharron states they reside at home in [place] and have a private pay caregiver that assists pt most days for a few hours and is available to stay overnight or increase his hours and spouse has two local adult Dtrs who provide assist or stay at their home if needed. Spouse denies pt has any hx of HH or SNF but has been attending outpt PT at [facility] but recommendation has been for HH although they were still waiting for PCP to help set up HH. Spouse states they have only been to the Neurologist at once in person and then have had 2 Telehealth appointments via video. Spouse also confirms that they recently updated their Living Will and no copy on file or at PCP office and SW encouraged spouse to provide a copy if she can to scan into pt's record as spouse cannot remember who they designated as their DPOAs. Spouse states that pt is mostly independent with ADL's, dressing, eating at home and ambulation but needs CGA or SBA when he sits/stands for balance issues. Pt also with Parkinson's dx. Spouse confirms that pt is better today, I was really worried about him last night he was so far from his usual but confirms that pt would not benefit or do well in SNF type setting and spouse is comfortable with plan of home with PP CG and new HH referral and states they also have a hospital bed being delivered today so that pt does not have to go up stairs to bed. SW provided HH Choice list and no preference therefore SW made referral to [facility] based on Vendor Calendar and faxed clinicals along with signed F2F and MD orders for plan of d/c later today to home via spouse POV. Plan: SW to follow for likely pt d/c home this evening via spouse POV and PP CG assist and new [facility] referral. RADHA Donahue Discharge Planning/Care Management CM Discharge Assessment Start: 05/05/20 11:12 Freq: Status: Active Protocol: Document 05/05/20 11:12 BF (Rec: 05/05/20 11:15 [id number]) Discharge Planning Assessment Assigned Leather Production Worker RADHA Harrington DPOA/Assigned Designee Name spouse Sharron Contact Information [phone] Advance Directives? No: requested copy Advance Directives on File No History Provided By Significant Other,Medical Record Has Patient been admitted in last 30 No days? Prior Living Arrangements House Household Members spouse Type of transporation used prior to Relies on Others admit Independent with ADL's Yes: mostly Is patient alert and oriented? No: Lewy body dementia Needs Assistance With Meal Prep,Managing Medications ,Home Chores / Shopping Caregiver for Another No Comment Pt has private pay caregiver assist at home as well Patient/Family Preference Home with Home Health Barriers to Discharge No Discharge Plan Home with Home Health Community Services Physical Therapy,Occupational Therapy,Speech Language Pathology Transportation Arrangement Spouse bedside and can provide transport home Referrals Initiated Home Health If patient plan is home with home health Yes : Has signed face to face form been completed? Medicare Choice List Provided Yes SNF/HH Preference no preference, utilized vendor calendar Whiteboard Updated in Patient Room with Yes name and ext. # of Leather Production Worker Review Status In Process Please Provide Date Initial DC 05/05/20 Assessment Was Performed Next Review Type Continued Stay Review
[2020-05-05] MEDS: DONEPEZIL 5 MG TABLET 15 MG PO (12:52)
--- NOTE | 2020-05-05 13:57 | PC.NURSE ---
Addendum entered by Faviola Freedman R.N. 05/05/20 15:14: ZACHARY MUNOZ HAS SEEN PATIENT AND SET UP HH AT HOME. SPOUSE HAS EXTRA FAMILY MEMBERS AND CAREGIVER AT HOME READY TO HELP AND FEELS READY TO TAKE PATIENT HOME. PHYSICAL THERAPY HAS WORKED W/ PATIENT. SEE NOTES. REPORT GIVEN TO NEXT SHIFT RN. Original Note: DAY SHIFT SUMMARY: PATIENT IMPULSIVE AT START OF SHIFT, TRYING TO GET OOB. HE WAS 2P ASSIST W/ GAIT BELT AND WALKER TO TRANSF TO RECLINER WITH MULTIPLE CUES. LEANS BACK DURING TRANSFER. KNEES TEND TO BUCKLE. ATE BREAKFAST IN RECLINER, CALM AND TOOK A NAP AFTER. TRANSFERRED BACK TO RECLINER PRIOR TO LUNCH, BRIEF CHANGED INCONT OF URINE, PATIENT HOLLERS OUT AND REFUSES TO ALLOW BLOOD PRESSURE TO BE OBTAINED, BOTH THIS MORNING AND THIS AFTERNOON. STATES, I REALLY DON'T THINK HE WANT'S YOU TO DO THAT. PHYSICAL THERAPY IN WITH PATIENT AND SPOUSE AT THIS TIME.
--- NOTE | 2020-05-05 15:43 | PT.IIE ---
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 He is verbal but not always intelligible at baseline. Mobility and Gait Until this past week, pt was independent with household mobility, including stairs, and could walk ~1/2 mile with SBA. Pt's mobility has declined this past week. Activities of Daily Living and IADL's Pt requires assist with all ADL's. He has recently needed assist with feeding due to difficulty managing utensils. Prior Functional Level (Other details) Pt has a caregiver, Sukhi, who is spends a few hours daily at the house. Pt's spouse, Sharron, provides all assist when private caregiver is not present. Social History Household Members spouse Living Arrangements House Number of Floors (Floors) 3 or More Floors Number of Stairs To Enter/Railing? Ramped entry to main level. Spouse states hospital bed is being delivered to the house today which will stay on the main level. Pt has 6 steps with B rails up to the second level with living room. From the second level, there are 4 steps with B rails and another 8 steps with unilateral support up to the bedroom level. Pt has been able to navigate all stairs until recent decline in mobility. Home Environment High Toilet,Tub/Shower Home Equipment Raised Toilet Seat w/Armrests, Hand Held Shower,Grab Bars In Shower Additional Social History Comment Pt lives in [place] with his spouse, Sharron, who provides all assist when private caregiver is not present. They have a son who has ALS and lives in [place]. They also have two daughters who live locally. M2 PT-IP Current Condition Start: 05/05/20 11:17 Freq: NEEDED Status: Active Protocol: Document 05/05/20 15:12 AW (Rec: 05/05/20 15:42 AW [id number]) Physical Therapy Current Condition Current Condition Evaluation Date 05/05/20 Treatment Diagnosis AMS, generalized weakness, difficulty in walking Onset Date 05/02/20 M3 PT-IP Subjective Start: 05/05/20 11:17 Freq: NEEDED Status: Active Protocol: Document 05/05/20 15:12 AW (Rec: 05/05/20 15:42 AW [id number]) Subjective Physical Therapy Visit Type Type Initial Evaluation Visit Start Time 13:49 Visit Stop Time 14:32 Total Visit Minutes 43 Notes Pt's spouse present throughout evaluation. She contributed all meaningful history. Physical Therapy Visit Comments Patient Comments Are we going to escape? Patient Goals Pt's spouse is interested in additional respite care but would like to take the pt home at discharge. M4 PT-IP Mobility and Gait Start: 05/05/20 11:17 Freq: NEEDED Status: Active Protocol: Document 05/05/20 15:12 AW (Rec: 05/05/20 15:42 AW [id number]) PT-Bed Mobility Assessment Supine to Sit Supine to Sit Minimal Assistance,1 Person Assistance Sit to Supine Sit to Supine Minimal Assistance,1 Person Assistance Scooting Scooting to Edge of Bed Contact Guard Assistance PT-Transfer Assessment Sit to and From Stand Sit to and from Stand Contact Guard Assistance,1 Person Assistance Equipment Transfer Assistive Device Gait Belt Orthotic/Prosthetic Devices or Brace: No Transfers Transfer Destination Bed,Chair Transfer Technique pt ambulated with and without FWW Transfer Ability Level of Assist Minimal Assistance,1 Person Assistance,2 Person Assistance Comments Mobility Comments Pt was sitting up in bed as PT arrived. He was able to respond to a greeting but unable to respond to most simple questions, including most yes/no questions. With short commands, pt was able to transfer himself to sitting EOB with min A x 1. Attempts at strength assessment were unsuccessful with pt largely unable to follow commands. Pt attempted to stand with FWW but was unresponsive to cues for hand placement on the walker handles. With max tactile cues, pt was able to hold on to the walker and transfer to the bedside chair min A x 1-2. Before sitting, pt stood in front of the chair several minutes as PT and SPT attempted to explain request for pt to sit. With spouse's assist for communication, pt eventually sat on the chair with min assist to guide his hips toward the seat. Pt impulsively stood from the chair and began to walk around the room without AD, requiring min A x 2 for safety as his knees began to shake and buckle. Pt required assist to recover from LOB x 3 as he walked 12 feet around the bed . Pt stood several minutes as communication failed and pt was unable to follow requests to sit on the bed. Pt eventually sat and was able to minimally scoot himself toward HOB before completing sit to supine min A x 1. Once positioned on the bed, bed alarm was armed. Pt was observed attempting to get out of the bed at least twice before PT and SPT left the room. His was able to convince him to remain on the bed. Gait Assessment Gait Gait Assistance Required: Minimum Assistance,2 Person Assist Distance (Feet) 12 Assistive Devices Assistive Device Gait Belt Orthotic/Prosthetic Devices or Brace: No Gait Deviations General Gait Pattern Ataxic,Decreased Stride Length ,Decreased Feet Clearance, Flexed Trunk,Lateral Trunk Lean Factors Limiting Gait Function Factors Limiting Gait Function Decreased Activity Tolerance, Decreased Strength,Difficulty Following Directions, Incoordination,Poor Balance, Poor Safety Awareness Comments Gait Comments Gait was notably ataxic. Pt was unable to maintain knee extension on at least three occasions during short walk around the bed, requiring min assist x 1-2 for safety. Stair Climbing Assessment Comments Stair Climbing Comments Not assessed. PT-Balance Assessment Sitting Balance and Reactions Static Sitting Balance Ability Fair Dynamic Sitting Balance Ability Fair Standing Balance and Reactions Static Standing Balance Ability Poor Dynamic Standing Balance Ability Poor Device Used none M5 PT-IP Objective Assessments Start: 05/05/20 11:17 Freq: NEEDED Status: Active Protocol: Document 05/05/20 15:12 AW (Rec: 05/05/20 15:42 AW [id number]) Orientation Orientation/Cognition Level of Alertness Confusional State Orientation Name Language Function Ability Garbled Speech Safety Awareness Decreased Safety Awareness Memory Description Short Term Impaired,Enterprise Infrastructure Architect Impaired Comments Pt has Lewy body dementia with difficulty responding to simple requests/commands. Strength Comments Strength Comments Unable to meaningfully assess ROM or strength due to pt's cognitive status. Coordination Assessment Gross Coordination Gross Coordination Impaired Assessment Coordination Comments ataxic gait Sensation Assessment Comments Sensation Comments Unable to assess. Muscle Tone Muscle Tone WNL No M6 PT-IP Treatment Start: 05/05/20 11:17 Freq: NEEDED Status: Active Protocol: Document 05/05/20 15:12 AW (Rec: 05/05/20 15:42 AW [id number]) Physical Therapy Treatment Education Education Provided Precautions,Safety Other Treatments Other Treatment Performed Provided education on role of PT, rationale for selection of assistive device or level of assist, and PT services. M7 PT-IP Assessment and Plan Start: 05/05/20 11:17 Freq: NEEDED Status: Active Protocol: Document 05/05/20 15:12 AW (Rec: 05/05/20 15:42 AW [id number]) PT Summary Assessment and Plan Potential Rehabilitation Potential Fair Status of Condition at Evaluation Evolving Summary Impairments Strength,Balance,Coordination, Tone,Cognition,Bed Mobility, Transfers,Gait,Activity Tolerance Assessment Summary Martell is an 80 yo man with Lewy body dementia who was admitted to the hospital with altered mental status and generalized weakness. No infectious source has been identified. Pt typically requires assist with all ADL's ; assist is provided by spouse and private caregiver. Pt has needed no more than SBA for mobility until this past week when his mobility declined. On evaluation, pt required min assist of 1-2 people for safe ambulation of short distances with and without assistive device. Pt appears to be safer without FWW at this time as he is unable to coordinate or follow directions to use the device safely. SNF rehab would not likely be helpful in the setting of advanced dementia. In this context, PT recommends increased mcc assist at home - up to 24/7 assist for all mobility with 1-2 people present at all times - and home health therapy to address safety within the home, reduce risk of falls, and increase pt's ability to participate in his own care. Pt's spouse states family are in the process of rearranging the home to accommodate main level living so that the pt will not need to use the stairs. PT recommends a hospital bed and BSC. Pt may eventually need a wheelchair. Goals Bed Mobility Goal Standby Assistance Transfer Goal Standby Assistance Gait Goal Standby Assistance Gait Distance 100 Days to Meet Goals 10 Frequency of Treatment Frequency Of Treatment Once a Day Treatment Plan Physical Therapy Treatment Plan Bed Mobility Training,Transfer Training,Gait Training, Therapeutic Exercise,Balance Retraining,Discharge Planning, Neuromuscular Re-ed, Coordination Retraining,Manual Therapy Other Recommendations and Next Treatment transfers, gait with HOME THEATER EXPERT Focus Recommendations To Nursing Amount of Assist Needed 2 Person Assist Discharge Recommendations PT Discharge Recommendations Home with 18/01 Assist,Home Health Equipment Needed for Home Before hospital bed, BSC Discharge Transportation Needs at Discharge Private Vehicle
--- NOTE | 2020-05-05 15:52 | PC.NURSE ---
Addendum entered by Fabiana Briceño R.N. 05/05/20 16:17: back in room. I assisted her to dress Martell. DC paperwork reviewed with her, she grabbed paperwork when I was talking about his medications, shaking her head. (Yesterday she had told me that he doesn't know he is taking anything-I sneak it in his food.) I asked if she would like to read this DC packet at home & she said yes, refusing for me to continue reading information to her in room. Patient assisted into wheelchair, is not following directions very well, it took almost 10 minutes to get him to keep his feet on foot rests. DREDGE MATE wheeled patient down to ER entrance, accompaning them, stated that son is waiting downstairs at ER entrance to help them get into car. All paperwork & DC teaching sent with them. Original Note: DC notes: Martell resting in bed, awake, speech mostly clear. 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 IV to RFA was difficult to remove as field start foam drsg was adhered to his arm hair. Pt swinging closed fist at my hand, hitting me a couple of times, assisted to comfort patient & hold patient's arms down while I soaked site with warm water and removed drsg & IV. Small 2x2 pressure drsg applied. Pt did not tolerate well, attempted to hit nurse a few times during tape removal. LFA IV was much easier to remove, pt tolerated that better but still yelled out at this nurse. Became calm shortly after IV removal. Small pressure drsg applied. left to meet son downstairs to get patient's clothing.
== END 2020-05-05 16:18 | disposition home or self-care (01) ==
LOC: ED 17:21 → AC 17:21
PROVIDERS: Admitting Provider Internal Medicine; Emergency Provider Emergency Medicine; PCP Family Medicine; Referring Provider Emergency Medicine; Visit Provider Internal Medicine
DX: R50.9 Fever, unspecified (principal); G31.83 Neurocognitive disorder with Lewy bodies; F02.80 Dementia in other diseases classified elsewhere, unspecified severity, without behavioral disturbance, psychotic disturbance, mood disturbance, and anxiety; H40.9 Unspecified glaucoma; M19.019 Primary osteoarthritis, unspecified shoulder; Z85.46 Personal history of malignant neoplasm of prostate; Z11.59 Encounter for screening for other viral diseases
CPT/HCPCS: 36415; 51701; 70450; 71045; 80048; 80053; 81001; 82550; 82553; 83605; 83690; 84145; 84484; 85025; 85610; 85730; 87040; 87070; 87635; 87651; 93005; 96360; 96361; 97163; 99284; 99285; G0378

== ENCOUNTER 2020-08-20 10:34 | Observation (INO) | payer OTHER, SELFPAY ==
[2020-05-04 17:32] VITALS: BMI 25.0
[2020-08-20] VITALS (14 sets, daily range): BP systolic 90–119; BP diastolic 51–76; PULSE 48–155; RESP 12–48; TEMP 36.2; O2SAT 94–100
--- NOTE | 2020-08-20 10:44 | ED_ITS ---
HPI - Syncope General Chief Complaint: Syncope Stated Complaint: Syncope on Commode Time Seen by Provider: 08/20/20 10:35 Source: family and old records reviewed Limitations: no limitations History of Present Illness HPI narrative: Patient is 80-year-old male with history of Lewy body dementia presenting after syncopal episode. His he apparently was on the toilet today when he had a strange clear gelatinous like bowel movement when he passed out for roughly 15 seconds. According to the daughter he has not been feeling well for about the last few days. The tested positive for COVID about 4 days ago. They have both been having upper respiratory like symptoms. He currently is in no respiratory distress and has no pain. He says yes to every question and so most of the history is received from the daughter. They do have 24 hour caregivers at home but with people testing positive for COVID the caregivers have also tested positive for COVID. Daughter also states that he is normally ambulatory but for the past 7 days has been more bed down requiring lots of assistance getting to a restroom. Certainly has had decreased oral intake as well caregivers have been pushing for fluids. Related Data Home Medications Medication Instructions Recorded Confirmed brimonidine 1 drp OPHTHALMIC (EYE) BID 05/04/20 05/30/20 latanoprost 1 drp OPHTHALMIC (EYE) BEDTIME 05/04/20 05/30/20 Previous Rx's Medication Instructions Recorded aspirin 81 mg PO DAILY #30 tab 05/05/20 donepezil 15 mg PO DAILY #90 tab 05/05/20 quetiapine 25 mg PO BEDTIME #30 tab 05/05/20 lorazepam 1 mg/0.5 mL oral syringe See Rx Instructions SUBLINGUAL 05/20/20 (FOR ORAL USE ONLY) QD-BID PRN #30 ea Disabled Parking permit #1 ea 05/30/20 Wheelchair Cushion #2 ea 06/04/20 ETAC Transfer Cano #1 ea 06/04/20 Tilt and Space Wheelchair #1 ea 06/04/20 Hospital Bed #1 ea 06/18/20 Allergies Allergy/AdvReac Type Severity Reaction Status Date / Time No Known Drug Allergies Allergy Verified 05/30/20 10:59 Review of Systems Review of Systems ROS Unobtainable: Unobtainable due to medical condition Patient History Medical History Aggression Bladder diverticulum Influenza A Lewy body dementia 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 Brother Dementia due to Alzheimer's disease Social History household members: spouse Smoking Status: Never smoker alcohol intake: never Smoking Status: Never smoker alcohol intake frequency: 0-2 drinks per day Substance Use Type: does not use Exam Initial Vital Signs Initial Vital Signs: Vital Signs Temperature 97.1 F L 08/20/20 10:45 Pulse Rate 81 08/20/20 10:45 Respiratory Rate 14 08/20/20 10:45 Blood Pressure 115/70 08/20/20 10:45 Pulse Oximetry 94 08/20/20 10:45 GENERAL: Alert pleasant 80-year-old male and in [no acute] distress. HEENT: Head atraumatic,EOMI, pupils reactive, face symmetric, [moist] mucous membranes CARDIOVASCULAR: Regular rate and rhythm without murmurs, rubs or gallops. RESPIRATORY: Breath sounds equal bilaterally, no wheezes rales or rhonchi. ABDOMEN: Soft, nontender. Normoactive bowel sounds all 4 quadrants. No guarding or rebound. : No CVA tenderness EXTREMITIES: Normal range of motion, no clubbing or edema. Neurovascularly intact NEUROLOGICAL: Alert spa director/finance strength equal bilaterally moving lower extremities SKIN: Warm, dry, no laceration, no petechiae, no rashes or lesions. Course Orders Ordered: ED Orders 08/20/20 10:34 D Dimer Stat 08/20/20 10:45 CT head/brain wo con Stat 08/20/20 10:46 XR chest 1V Stat COVID19 Stat EKG-12 Lead Stat 08/20/20 10:48 C-Reactive Protein Quant Stat Complete Blood Count AUTO DIFF Stat Comprehensive Metabolic Panel Stat Ferritin Stat Lactate Dehydrogenase Stat NT-proBNP (BNP-Adult 18+) Stat Procalcitonin Stat Troponin & CK Cardiac Panel Stat 08/20/20 11:04 Blood Culture Stat Lactate (Lactic Acid) Stat Sodium Chloride (Normal Saline 0.9%) 1,000 mls @ 125 mls/hr IV CONT PRASANTH Last Infusion: 08/20/20 15:05 Dose: 0 mls/hr Documented by: Infusion: 08/20/20 13:45 Dose: 999 mls/hr Documented by: Admin: 08/20/20 12:35 Dose: 125 mls/hr Documented by: STEPHANY Vital Signs Vital signs: Vital Signs - 8 hr 08/20/20 12:06 08/20/20 12:31 08/20/20 12:34 Pulse Rate 82 77 Respiratory Rate 28 H 13 Blood Pressure 90/51 L 97/56 L Pulse Oximetry 99 95 08/20/20 13:00 08/20/20 13:30 Pulse Rate 155 H 65 Respiratory Rate 23 12 Blood Pressure 98/55 L 109/60 Pulse Oximetry 97 98 MDM - Syncope Lab Data Attestation: I reviewed the patient's lab results. Result diagrams: 08/20/20 10:48 08/20/20 10:48 Labs: Lab Results 08/20/20 08/20/20 08/20/20 Range/Units 10:34 10:46 10:48 WBC (4.5-11.0) X10^3/uL RBC (4.5-5.9) X10^6/uL Hgb (13.5-17.5) g/dL Hct (41-53) % MCV (80-100) fL MCH (26-34) PG MCHC (30-36) % RDW (11.6-14.8) % Plt Count (150-400) X10^3/uL Neut % (Auto) Lymph % (Auto) [place] % (Auto) Eos % (Auto) Baso % (Auto) Lymph # (Auto) [place] # (Auto) Baso # (Auto) Total Counted Seg Neutrophils % (38-70) % Band Neutrophils % (3-7) % Lymphocytes % (Manual) (25-45) % Atypical Lymphs % ( - 0) % Monocytes % (Manual) (2-11) % Neutrophils # (Manual) (1081-6391) /uL RBC Morphology D-Dimer 504 H (<230) ng/mL Sodium (137-145) mmol/L Potassium (3.4-5.1) mmol/L Chloride (98-107) mmol/L Carbon Dioxide (22-32) mmol/L BUN (9-20) mg/dL Creatinine (0.66-1.25) mg/dL Estimated GFR (>60) mL/min BUN/Creatinine Ratio (6-22) Glucose (80-110) mg/dL Lactate (0.7-2.1) mmol/L Calcium (8.4-10.2) mg/dL Ferritin (18-464) ng/mL Total Bilirubin (0.2-1.3) mg/dL AST (17-59) IU/L ALT (<50) IU/L Alkaline Phosphatase (38-126) U/L Lactate Dehydrogenase (313-618) U/L Total Creatine Kinase (55-170) U/L CK-MB (CK-2) (<2.37) ng/mL CK-MB (CK-2) Rel Index (1.5-5.0) % Troponin I (0.01-0.034) ng/mL C-Reactive Protein (<1.0) mg/dL NT-Pro-B Natriuret Pep (<450) pg/mL Total Protein (6.3-8.2) g/dL Albumin (3.5-5.0) g/dL Globulin (1.7-4.1) g/dL Albumin/Globulin Ratio (1.0-2.8) Procalcitonin 0.07 (<0.5) ng/mL SARS-CoV-2 (PCR) Positive H (Negative) 08/20/20 08/20/20 08/20/20 Range/Units 10:48 10:48 11:04 WBC 4.2 L (4.5-11.0) X10^3/uL RBC 4.75 (4.5-5.9) X10^6/uL Hgb 14.5 (13.5-17.5) g/dL Hct 43.3 (41-53) % MCV 91.2 (80-100) fL MCH 30.4 (26-34) PG MCHC 33.4 (30-36) % RDW 13.9 (11.6-14.8) % Plt Count 146 L (150-400) X10^3/uL Neut % (Auto) Not Reportable Lymph % (Auto) Not Reportable [place] % (Auto) Not Reportable Eos % (Auto) Not Reportable Baso % (Auto) Not Reportable Lymph # (Auto) Not Reportable [place] # (Auto) Not Reportable Baso # (Auto) Not Reportable Total Counted 100 Seg Neutrophils % 32.0 L (38-70) % Band Neutrophils % 2.0 L (3-7) % Lymphocytes % (Manual) 20.0 L (25-45) % Atypical Lymphs % 41.0 H ( - 0) % Monocytes % (Manual) 5.0 (2-11) % Neutrophils # (Manual) 1428 L (2441-0673) /uL RBC Morphology Normal morphology D-Dimer (<230) ng/mL Sodium 137 (137-145) mmol/L Potassium 3.4 (3.4-5.1) mmol/L Chloride 103 (98-107) mmol/L Carbon Dioxide 28 (22-32) mmol/L BUN 20 (9-20) mg/dL Creatinine 0.76 (0.66-1.25) mg/dL Estimated GFR > 60.0 (>60) mL/min BUN/Creatinine Ratio 26.3 H (6-22) Glucose 117 H (80-110) mg/dL Lactate 1.3 (0.7-2.1) mmol/L Calcium 8.6 (8.4-10.2) mg/dL Ferritin 792 H (18-464) ng/mL Total Bilirubin 0.5 (0.2-1.3) mg/dL AST 35 (17-59) IU/L ALT 28 (<50) IU/L Alkaline Phosphatase 89 (38-126) U/L Lactate Dehydrogenase 469 (313-618) U/L Total Creatine Kinase 108 (55-170) U/L CK-MB (CK-2) < 0.22 (<2.37) ng/mL CK-MB (CK-2) Rel Index 0.2 L (1.5-5.0) % Troponin I < 0.012 (0.01-0.034) ng/mL C-Reactive Protein 4.0 H (<1.0) mg/dL NT-Pro-B Natriuret Pep 219 (<450) pg/mL Total Protein 6.9 (6.3-8.2) g/dL Albumin 3.8 (3.5-5.0) g/dL Globulin 3.1 (1.7-4.1) g/dL Albumin/Globulin Ratio 1.2 (1.0-2.8) Procalcitonin (<0.5) ng/mL SARS-CoV-2 (PCR) (Negative) Imaging Data CT scan - head: Radiologist's Impression: PROCEDURE: CT HEAD/BRAIN WO CON INDICATIONS: syncope TECHNIQUE: Noncontrast 4.5 mm thick angled axial sections acquired from the foramen magnum to the vertex, with coronal and sagittal reformats. For radiation dose reduction, the following was used: automated exposure control, adjustment of mA and/or kV according to patient size. COMPARISON: [facility], CT, HEAD WITHOUT CONTRAST, 04/30/2017, 9:54. [facility], CT, HEAD WITHOUT CONTRAST, 06/24/2016, 15:50. [facility], CT, CT HEAD/BRAIN WO CON, 05/04/2020, 16:08. FINDINGS: Image quality: Excellent. CSF spaces: Basal cisterns are patent. No extra-axial fluid collections. The ventricles are symmetric in size and shape. Brain: No intracranial bleeds or masses. There is cerebral volume loss for age, with resultant ventricular and sulcal prominence. There are periventricular and deep white matter chronic small vessel ischemic changes. There is intracranial internal carotid artery atherosclerosis. Skull and face: Calvarium and visualized facial bones appear intact, without suspicious lesions. Sinuses: Visualized sinuses and mastoids are clear. IMPRESSION: Unremarkable intracranial study for age. Stable from priors. Dictated by: Yannick Coe M.D. on 08/20/2020 at 11:02 Chest x-ray: Radiologist's Impression: PROCEDURE: XR CHEST 1V INDICATIONS: syncope TECHNIQUE: One view of the chest was acquired. COMPARISON: [facility], CR, XR CHEST 1V, 05/04/2020, 16:00. FINDINGS: Surgical changes and devices: None. Lungs and pleura: Lungs are clear. No pleural effusions or pneumothorax. Mediastinum: Mediastinal contours appear normal. Heart size is mildly enlarged. Bones and chest wall: No suspicious bony lesions. Overlying soft tissues appear unremarkable. IMPRESSION: No acute pulmonary process. Dictated by: Vee Bustos M.D. on 08/20/2020 at 11:32 ECG Data Attestation: I personally reviewed and interpreted this ECG as follows: Interpretation: Sinus rhythm rate 83 p.r. interval [address] changes some artifact noted as well similar to previous EKG MDM Narrative Medical decision making narrative: The patient overall is calm and cooperative in the emergency department. Daughter is in the room loss of discussion with patient's daughter about going home versus being admitted. Patient is found to be slightly hypotensive with systolic in the 90s positive COVID with a syncopal episode. Likely dehydration and vasovagal causing the syncope. His COVID symptoms at this time seem stable he is not tachypneic hypoxic or having any chest x-ray changes. I have discussed at length with daughter monitoring oxygen at home. She understands. Initially I spoke with hospitalist Dr. Esposito who agrees to observation. However daughter wants to be able to stay with the patient because patient is COVID positive hospital policy does not permit visitors. Patient talked with the , the mother they have lots of caregivers at home at this time he would prefer if patient be sent home. At this time I have no clear indication for admission except for weakness and positive COVID. The patient will be going home BLS seeing his so he is nonambulatory I discussed all findings with the patient's daughter, Education has been performed regarding treatment plan, diagnosis, warning signs and symptoms and all concerns have been addressed. Verbally agree with and understood all of the above. Discharge Plan Departure Patient Disposition: Home Clinical Impression: Syncope, COVID-19
[2020-08-20 10:52] LABS: Hematocrit 43.3 % (41-53); Hemoglobin 14.5 g/dL (13.5-17.5); Mean Corpuscular HGB Conc 33.4 % (30-36); Mean Corpuscular Hemoglobin 30.4 PG (26-34); Mean Corpuscular Volume 91.2 fL (80-100); Platelet Count 146 X10^3/uL (150-400); Red Blood Cell Count 4.75 X10^6/uL (4.5-5.9); Red Cell Distribution Width 13.9 % (11.6-14.8); White Blood Cell Count 4.2 X10^3/uL (4.5-11.0)
[2020-08-20 10:53] LABS: Add Manual Diff / Slide Review YES
[2020-08-20 11:08] LABS: Alanine Aminotransferase 28 IU/L (<50); Albumin 3.8 g/dL (3.5-5.0); Albumin Globulin Ratio 1.2 (1.0-2.8); Alkaline Phosphatase 89 U/L (38-126); Aspartate Aminotransferase 35 IU/L (17-59); BUN Creatinine Ratio 26.3 (6-22); Bilirubin Total 0.5 mg/dL (0.2-1.3); Blood Urea Nitrogen 20 mg/dL (9-20); Calcium 8.6 mg/dL (8.4-10.2); Carbon Dioxide 28 mmol/L (22-32); Chloride 103 mmol/L (98-107); Creatine Kinase 108 U/L (55-170); Estimated Glomerular Filt Rate > 60.0 mL/min (>60); Globulin 3.1 g/dL (1.7-4.1); Glucose 117 mg/dL (80-110); HEMOLYSIS < 15 (0-50); Lactate Dehydrogenase 469 U/L (313-618); Neutrophils Absolute Manual 1428 /uL (3000-5900); Potassium 3.4 mmol/L (3.4-5.1); Sodium 137 mmol/L (137-145); Total Cells Counted 100; Total Protein 6.9 g/dL (6.3-8.2)
[2020-08-20 11:09] LABS: RBC Morphology Normal Morphology
[2020-08-20 11:14] LABS: COVID19 -Nasal RAPID POSITIVE (Negative)
[2020-08-20 11:15] LABS: NT-proBNP (BNP-Adult 18+) 219 pg/mL (<450); Troponin I < 0.012 ng/mL (0.01-0.034)
[2020-08-20 11:21] LABS: Procalcitonin 0.07 ng/mL (<0.5)
[2020-08-20 11:24] LABS: CKMB % Relative Index 0.2 % (1.5-5.0); Creatine Kinase MB < 0.22 ng/mL (<2.37)
[2020-08-20 11:35] LABS: Lactate (Lactic Acid) 1.3 mmol/L (0.7-2.1)
[2020-08-20 11:38] LABS: Ferritin 792 ng/mL (18-464)
[2020-08-20 12:08] LABS: D Dimer 504 ng/mL (<230)
[2020-08-20] MEDS: SODIUM CHLORIDE 0.9% 1,000 ML 125 ML IV (12:35)
--- NOTE | 2020-08-20 13:45 | P.HP_ITS ---
History of Present Illness History of Present Illness Date Patient Seen: 08/20/20 Chief complaint: Syncope on Commode Narrative: This is an 80-year-old male with past medical history of Lewy body dementia who is presenting to the hospital with syncope. 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 Brother Dementia due to Alzheimer's disease Social History: household members spouse Tobacco & Substance use: Smoking Status Never smoker alcohol intake never alcohol intake frequency 0-2 drinks per day Substance Use Type does not use Meds Home Medications and Allergies Home Medications Medication Instructions Recorded Confirmed Type brimonidine 1 drp OPHTHALMIC (EYE) BID 05/04/20 05/30/20 History latanoprost 1 drp OPHTHALMIC (EYE) BEDTIME 05/04/20 05/30/20 History aspirin 81 mg PO DAILY #30 tab 05/05/20 05/30/20 Rx donepezil 15 mg PO DAILY #90 tab 05/05/20 05/30/20 Rx quetiapine 25 mg PO BEDTIME #30 tab 05/05/20 05/30/20 Rx lorazepam 1 mg/0.5 mL oral syringe See Rx Instructions SUBLINGUAL 05/20/20 05/30/20 Rx (FOR ORAL USE ONLY) QD-BID PRN #30 ea Disabled Parking permit #1 ea 05/30/20 Rx Wheelchair Cushion #2 ea 06/04/20 Rx ETAC Transfer Cano #1 ea 06/04/20 Rx Tilt and Space Wheelchair #1 ea 06/04/20 Rx Hospital Bed #1 ea 06/18/20 Rx Allergies Allergy/AdvReac Type Severity Reaction Status Date / Time No Known Drug Allergies Allergy Verified 05/30/20 10:59 Exam Vital Signs (past 8 hours): - 08/20/20 10:45 08/20/20 12:06 08/20/20 12:31 Temperature 97.1 F L Pulse Rate 81 82 Respiratory Rate 14 28 H Blood Pressure 115/70 90/51 L Pulse Oximetry 94 99 08/20/20 12:34 08/20/20 13:00 08/20/20 13:30 Temperature Pulse Rate 77 155 H 65 Respiratory Rate 13 23 12 Blood Pressure 97/56 L 98/55 L 109/60 Pulse Oximetry 95 97 98 Oxygen Delivery Method Room Air Objective Labs Result Diagrams: 08/20/20 10:48 08/20/20 10:48 Labs: Laboratory Results - last 24 hr 08/20/20 08/20/20 08/20/20 10:34 10:46 10:48 WBC RBC Hgb Hct MCV MCH MCHC RDW Plt Count Neut % (Auto) Lymph % (Auto) [place] % (Auto) Eos % (Auto) Baso % (Auto) Lymph # (Auto) [place] # (Auto) Baso # (Auto) Total Counted Seg Neutrophils % Band Neutrophils % Lymphocytes % (Manual) Atypical Lymphs % Monocytes % (Manual) Neutrophils # (Manual) RBC Morphology D-Dimer 504 H Sodium Potassium Chloride Carbon Dioxide BUN Creatinine Estimated GFR BUN/Creatinine Ratio Glucose Lactate Calcium Ferritin Total Bilirubin AST ALT Alkaline Phosphatase Lactate Dehydrogenase Total Creatine Kinase CK-MB (CK-2) CK-MB (CK-2) Rel Index Troponin I C-Reactive Protein NT-Pro-B Natriuret Pep Total Protein Albumin Globulin Albumin/Globulin Ratio Procalcitonin 0.07 SARS-CoV-2 (PCR) Positive H 08/20/20 08/20/20 08/20/20 10:48 10:48 11:04 WBC 4.2 L RBC 4.75 Hgb 14.5 Hct 43.3 MCV 91.2 MCH 30.4 MCHC 33.4 RDW 13.9 Plt Count 146 L Neut % (Auto) Not Reportable Lymph % (Auto) Not Reportable [place] % (Auto) Not Reportable Eos % (Auto) Not Reportable Baso % (Auto) Not Reportable Lymph # (Auto) Not Reportable [place] # (Auto) Not Reportable Baso # (Auto) Not Reportable Total Counted 100 Seg Neutrophils % 32.0 L Band Neutrophils % 2.0 L Lymphocytes % (Manual) 20.0 L Atypical Lymphs % 41.0 H Monocytes % (Manual) 5.0 Neutrophils # (Manual) 1428 L RBC Morphology Normal morphology D-Dimer Sodium 137 Potassium 3.4 Chloride 103 Carbon Dioxide 28 BUN 20 Creatinine 0.76 Estimated GFR > 60.0 BUN/Creatinine Ratio 26.3 H Glucose 117 H Lactate 1.3 Calcium 8.6 Ferritin 792 H Total Bilirubin 0.5 AST 35 ALT 28 Alkaline Phosphatase 89 Lactate Dehydrogenase 469 Total Creatine Kinase 108 CK-MB (CK-2) < 0.22 CK-MB (CK-2) Rel Index 0.2 L Troponin I < 0.012 C-Reactive Protein 4.0 H NT-Pro-B Natriuret Pep 219 Total Protein 6.9 Albumin 3.8 Globulin 3.1 Albumin/Globulin Ratio 1.2 Procalcitonin SARS-CoV-2 (PCR) Assessment & Plan Assessment & Plan narrative: Assessment: This is an 80-year-old male with past medical history of Lewy body dementia who is presenting to the hospital with syncope. #. Syncope Suspect he has syncope secondary to hypovolemia in the setting of COVID-19 infection. Continue with IV fluid hydration. Monitor on telemetry. Check or thostatics. #. COVID-19 infection Is been at home and apparently has not been feeling well for the past several days. His tested positive for COVID about 4 days ago. They have both had URI symptoms. COVID-19 PCR is positive today. He is not requiring supplemental oxygen. No indication for Remdesevir or dexamethasone. Had elevated D-dimer, however due to lack of chest pain, dyspnea, hypoxemia will defer CTA at this time. Continue with isolation precautions. #. Lewy body dementia DVT prophylaxis: Code status: COVID-19 COVID-19 status: Positive Result date/Date tested (Pos, Neg/Pending): 08/20/20
[2020-08-20 14:57] LABS: RBC Urine None Seen (0-5/HPF)
--- NOTE | 2020-08-20 15:05 | PC.NURSE ---
Dr Anderson opened fluids up at 1415 for a bolus when in the room.
[2020-08-20 15:11] LABS: Amorphous Sediment Urine 1+; Bacteria Urine Occasional (0-1); Squamous Epithelial Cell Urine 0-1 /HPF (0-5/HPF); WBC Urine 1-5/HPF (0-5/HPF)
[2020-08-20 15:12] LABS: Culture Indicated Urine Cult Not Indicated; Mucus Urine 1+ (Negative)
== END 2020-08-20 19:20 | disposition home or self-care (01) ==
LOC: ED 13:30 → AC 13:32
PROVIDERS: Admitting Provider Hospitalist; Emergency Provider Emergency Medicine; PCP Family Medicine; Visit Provider Hospitalist
DX: R55 Syncope and collapse (principal); U07.1 COVID-19; G31.83 Neurocognitive disorder with Lewy bodies; F02.80 Dementia in other diseases classified elsewhere, unspecified severity, without behavioral disturbance, psychotic disturbance, mood disturbance, and anxiety
CPT/HCPCS: 36415; 70450; 71045; 80053; 81003; 81015; 82550; 82553; 82728; 83605; 83615; 83880; 84145; 84484; 85007; 85025; 85379; 86140; 87040; 87635; 93005; 96360; 96361; 99284; C9803; G0378